=== PATIENT | male | born 1925 | race Caucasian/White ===

== ENCOUNTER 2017-07-11 23:30 | Inpatient (IN) ==
[2017-07-12] MEDS ORDERED: 0.9 % Sodium Chloride 1,000 ML IVC ONE ×2 (00:06→04:00)
[2017-07-12 00:37] LABS: Basophils % 0.3 %; Eosinophils # 0.1 K/mcL (0.0-0.6); Hematocrit 39.8 % (37.5-50.1); Hemoglobin 12.9 g/dL (12.9-16.9); Immature Granulocytes % 0.4 % (0-4); Lymphocytes # 0.9 K/mcL (0.6-4.6); Lymphocytes % 13.9 %; Mean Corpuscular HGB Conc 32.4 g/dL (31.6-35.5); Mean Corpuscular Volume 98.8 fL (83.0-100.0); Mean Platelet Volume 10.4 fL (9.4-12.4); Monocytes # 0.5 K/mcL (0.0-1.3); Monocytes % 7.6 %; Neutrophils # 5.1 K/mcL (1.6-8.9); Platelet Count 279 K/mcL (140-400); Red Blood Count 4.03 M/mcL (4.19-5.50); Red Cell Distribution Width 13.7 % (11.5-14.5); Segmented Neutrophils % 76.8 %
[2017-07-12 00:43] LABS: Bilirubin,Urine Negative (Negative); Blood,Urine Small (Negative); Clarity,Urine Clear (Clear); Color,Urine Yellow (Yellow); Glucose,Urine (UA) >=1000 mg/dL (Normal); Ketones,Urine Negative (Negative); Leukocyte Esterase,Urine Negative (Negative); Nitrite,Urine Negative (Negative); Protein,Urine 30 mg/dL (Neg-Trace); Specific Gravity,Urine 1.025 (1.010-1.025); Urobilinogen,Urine Normal (Normal)
[2017-07-12 00:46] LABS: Bacteria,Urine None Seen per hpf (None-Few); Hyaline Casts,Urine None Seen per lpf (None-Few); Squamous Epithelial Cell,Urine Many per lpf (None-Few); WBC,Urine 0-3 per hpf (0-3)
--- NOTE | 2017-07-12 01:29 | Emergency Department Note ---
Disposition Clinical Impression: Aspiration pneumonia Qualifiers: Aspiration pneumonia type: unspecified Laterality: bilateral Lung location: unspecified part of lung Qualified Code(s): J69.0 - Pneumonitis due to inhalation of food and vomit Disposition: Admitted As Inpatient Condition: Undetermined [facility]: [facility]Primary Care Provider[facility] - Forms: ED Satisfaction Letter Nausea/Vomiting/Diarrhea HPI - General Chief complaint: ED Nausea/Vomiting/Diarrhea Stated complaint: VOMITING Time Seen by Provider: 07/11/17 23:35 Source: EMS Mode of arrival: EMS Limitations: altered mental status Nursing Notes Reviewed: Yes Vital Signs Reviewed: Yes - History of Present Illness HPI Narrative: 89-year-old patient with a history of hypertension, diabetes, dementia, tachycardia, CVA, responsiveness, nonverbal noticed presents emergency department from the alf. 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 Number of episodes of emesis: 3 - Related Data Home Medications Medication Instructions Recorded Confirmed Aspirin 81 mg PO DAILY 10/30/14 01/05/17 Clopidogrel [Plavix] 75 mg PO DAILY 10/30/14 01/05/17 Cyanocobalamin (Vitamin B-12) 500 mcg PO BID 10/30/14 01/05/17 [Vitamin B-12] Docusate [Colace] 100 mg PO DAILY 10/30/14 01/05/17 Gabapentin [Neurontin] 200 mg PO TID 10/30/14 01/05/17 Insulin LISPRO [Humalog] 10 unit SQ TIDWM 10/30/14 01/05/17 Lisinopril [Zestril] 5 mg PO DAILY 10/30/14 01/05/17 Ranitidine HCl [Zantac] 150 mg PO BID 10/30/14 01/05/17 metFORMIN [Glucophage] 500 mg PO BID 10/30/14 01/05/17 Cholecalciferol (D-3) [Vitamin D] 1,000 unit PO DAILY 08/09/15 01/05/17 Insulin Glargine,Hum.rec.anlog 17 unit SQ HS 08/09/15 01/05/17 [Lantus Solostar] Metoprolol XL (24 HR) Succ [Toprol 50 mg PO DAILY 08/09/15 01/05/17 Xl] Acetaminophen [Pain Reliever] 500 mg PO Q8H PRN 03/17/16 01/05/17 Ipratropium/Albuterol Neb [Duoneb] 3 ml IH Q6HR 03/17/16 01/05/17 Multivit with Iron-Minerals 1 each PO DAILY 03/17/16 01/05/17 [[facility]] Previous Rx's Medication Instructions Recorded Erythromycin OPTH Oint 1 appl BOTH EYES QID 7 Days #1 tube 01/07/17 Allergies Allergy/AdvReac Type Severity Reaction Status Date / Time No Known Allergies Allergy Verified 10/16/14 09:48 Limitations: ROS unobtainable due to patients medical condition Past Medical History - Past Medical History Source: old records reviewed Medical history: Reports: CVA, dementia, diabetes, GERD, hyperlipidemia, hypertension, peripheral artery disease, TIA, other Surgical history: Reports: carotid endarterectomy, other Psychiatric history: Reports: no psych history - Social History Smoking Status: Never smoker Smokeless Tobacco Status: No Alcohol use: Reports: none Drug use: Reports: none Physical Exam - General Limitations: altered mental status General appearance: alert, in no apparent distress - Head Head exam: atraumatic, normocephalic, normal inspection - Eye Eye exam: Present: normal appearance, PERRL. Absent: conjunctival injection - ENT ENT exam: mucous membranes moist - Neck Neck exam: Present: normal inspection, full ROM, trachea midline - Chest Chest inspection: Present: normal inspection, symmetric chest wall rise - Respiratory Respiratory exam: Present: normal lung sounds bilaterally, other (Moist cough) - Cardiovascular Cardiovascular exam: Present: regular rate, normal rhythm, normal heart sounds - Abdominal Exam Abdominal exam: Present: soft, Non-Tender, normal bowel sounds. Absent: tenderness, distention, guarding, rebound, rigidity - Extremities Exam Extremities exam: Present: normal inspection, full ROM. Absent: tenderness, pedal edema - Neurological Exam Neurological exam: Present: other (Nonverbal, unresponsive) - Psychiatric Psychiatric exam: Present: normal affect - Skin Skin exam: Present: warm, dry, intact, normal color Course Course Narrative: 89-year-old nonverbal, unresponsive male to the emergency department for evaluation of vomiting 3 per EMS. Patient is from a local alf. Examination revealed a well-hydrated, [id number] male who is nonverbal, unresponsive; moist cough, respirations easy and even, lungs clear to auscultate, 96% on 2 L, heart rate tachycardia, regular rhythm; bowel sounds 4 , no organomegaly, tenderness, guarding with palpation. Skin with she will pressure ulcer to his coccyx, no other opening, right AKA. Vital signs have been stable, he has been tachycardic but does have a history of tachycardia. Due to cough we will obtain chest x-ray, give a liter fluid, check a urine and reevaluate. Concern for pneumonia - Reevaluation(s) Reevaluation #1: Labs all returned without signs of leukocytosis, systemic illness. UA without signs of infection. Patient has been resting comfortably without any episodes of emesis and she has been here. Skin check revealed no open ulcers. During recheck her vitals temperature noted to be 103 axillary. Patient running boluses, sepsis subset ordered. Patient noted with one episode of thin , brown colored emesis. At the same time patient was noted to have a BM. We have added flu swab and CT scan to help evaluate with fevers coming from. Patient meeting circulatory criteria at this time. Time: 02:55 Reevaluation #2: Patient returns to CT with SPO2 88%. Apparently while laying flat for CT scan patient vomited, since then has been coughing. Radiology suction patient in radiology, return patient to the ED quickly. Suction patient with younger revealing dark brown small amounts of fluid from back of throat. SPO2 noted 90% , increased O2 rate of 5 L, noted 92%. Patient continues to sound wet, moist as if he is aspirated called for respiratory therapy for deep suction. Patient is a full code at the alf. Patient most likely with aspiration pneumonia due to the fever, tachycardia, vomiting as patient is on a thick liquids, as well as some aspirate at this time. Chest x-ray earlier may have been before the 12-24 hour threshold to catch the aspiration pneumonia. We will go ahead and treat for presumed aspiration pneumonia as this is most likely at this time. We will continue to manage airway. Attending Dr. King's outpatient with one-on-one face time is agreeable plan of care. Time: 03:20 Reevaluation #3: Respiratory on unit deep suctioning with effective results. SPO2 now 9496% on O2. CT scan reveals atelectasis versus pneumonia. Due to witness aspiration, previous vomiting. We will admit to hospitalist services for aspiration pneumonia. Hospital speech at this time. Patient remains tachycardia with heart rate 125-135, respirations remain about 30. Lungs very moist, rhonchorous. Time: 03:29 Vital Signs Temperature 99.5 F 07/11/17 23:37 Pulse Rate 111 07/11/17 23:37 Respiratory Rate 18 07/11/17 23:37 Blood Pressure 127/73 07/11/17 23:37 O2 Sat by Pulse Oximetry 97 07/11/17 23:37 Temperature 102.7 F H 07/12/17 03:16 Pulse Rate 127 07/12/17 03:16 Respiratory Rate 22 07/12/17 03:16 Blood Pressure 116/62 07/12/17 03:16 O2 Sat by Pulse Oximetry 93 07/12/17 03:16 Oxygen Delivery Oxygen Delivery Nasal Cannula Nausea/Vomiting/Diarrhea - Differential Diagnosis Likely: food poisoning, gastroenteritis, drug-induced nausea and vomitting, dehydration. Unlikely: traveler's diarrhea, clostridium difficile infection, bowel obstruction, ischemic bowel - Medical Records Medical records reviewed: Yes I reviewed the patient's medical records. - Lab Data Lab results reviewed: Yes I reviewed the patient's lab results. Result diagrams: 07/12/17 00:27 07/12/17 01:16 Lab Results 07/12/17 07/12/17 07/12/17 Range/Units 00:27 00:27 00:35 WBC 6.7 (4.3-11.1) K/mcL RBC 4.03 L (4.19-5.50) M/mcL Hgb 12.9 (12.9-16.9) g/dL Hct 39.8 (37.5-50.1) % MCV 98.8 (83.0-100.0) fL MCH 32.0 (28.0-33.3) pg MCHC 32.4 (31.6-35.5) g/dL RDW 13.7 (11.5-14.5) % Plt Count 279 (140-400) K/mcL MPV 10.4 (9.4-12.4) fL Immature Gran % 0.4 (0-4) % Seg Neutrophils % 76.8 % Lymphocytes % 13.9 % Monocytes % 7.6 % Eosinophils % 1.0 % Basophils % 0.3 % Neutrophils # 5.1 (1.6-8.9) K/mcL Lymphocytes # 0.9 (0.6-4.6) K/mcL Monocytes # 0.5 (0.0-1.3) K/mcL Eosinophils # 0.1 (0.0-0.6) K/mcL Basophils # 0.0 (0.0-0.2) K/mcL Sodium (136-145) mEq/L Potassium (3.5-5.1) mEq/L Chloride (98-107) mEq/L Carbon Dioxide (23-29) mEq/L BUN (8-23) mg/dL Creatinine (0.70-1.30) mg/dL Est GFR ( Amer) (> 60) Est GFR (Non-Af Amer) (> 60) BUN/Creatinine Ratio (6-26) Glucose (70-105) mg/dL Calculated Osmolality (280-300) Calcium (8.6-10.3) mg/dL Total Bilirubin (0.3-1.0) mg/dL Direct Bilirubin (0.0-0.2) mg/dL Indirect Bilirubin (0.0-1.2) mg/dL AST (13-39) Units/L ALT (7-52) Units/L Alkaline Phosphatase (34-104) Units/L Serum Total Protein (6.4-8.9) g/dL Albumin (3.5-5.7) g/dL Globulin (2.4-3.5) g/dL Albumin/Globulin Ratio (1.1-2.2) Lipase (11-82) Units/L Urine Color Yellow (Yellow) Urine Clarity Clear (Clear) Urine pH 6.0 (5.0-8.0) pH Units Ur Specific [place] 1.025 (1.010-1.025) Urine Protein 30 H (Neg-Trace) mg/dL Urine Glucose (UA) >=1000 H (Normal) mg/dL Urine Ketones Negative (Negative) mg/dL Urine Blood Small H (Negative) Urine Nitrite Negative (Negative) Urine Bilirubin Negative (Negative) Urine Urobilinogen Normal (Normal) mg/dL Ur Leukocyte Esterase Negative (Negative) Urine Microscopic RBC 3-5 H (0-3) per hpf Urine Microscopic WBC 0-3 (0-3) per hpf Ur Squamous Epith Cells Many H (None-Few) per lpf Urine Bacteria None Seen (None-Few) per hpf Hyaline Casts None Seen (None-Few) per lpf Ur Culture Indicated? NO (NO) Specimen Rejected Hemolyzed 07/12/17 Range/Units 01:16 WBC (4.3-11.1) K/mcL RBC (4.19-5.50) M/mcL Hgb (12.9-16.9) g/dL Hct (37.5-50.1) % MCV (83.0-100.0) fL MCH (28.0-33.3) pg MCHC (31.6-35.5) g/dL RDW (11.5-14.5) % Plt Count (140-400) K/mcL MPV (9.4-12.4) fL Immature Gran % (0-4) % Seg Neutrophils % % Lymphocytes % % Monocytes % % Eosinophils % % Basophils % % Neutrophils # (1.6-8.9) K/mcL Lymphocytes # (0.6-4.6) K/mcL Monocytes # (0.0-1.3) K/mcL Eosinophils # (0.0-0.6) K/mcL Basophils # (0.0-0.2) K/mcL Sodium 136 (136-145) mEq/L Potassium 4.5 (3.5-5.1) mEq/L Chloride 105 (98-107) mEq/L Carbon Dioxide 23 (23-29) mEq/L BUN 24 H (8-23) mg/dL Creatinine 1.04 (0.70-1.30) mg/dL Est GFR ( Amer) > 60 (> 60) Est GFR (Non-Af Amer) > 60 (> 60) BUN/Creatinine Ratio 23 (6-26) Glucose 289 H (70-105) mg/dL Calculated Osmolality 297 (280-300) Calcium 8.2 L (8.6-10.3) mg/dL Total Bilirubin 0.2 L (0.3-1.0) mg/dL Direct Bilirubin 0.1 (0.0-0.2) mg/dL Indirect Bilirubin 0.1 (0.0-1.2) mg/dL AST 14 (13-39) Units/L ALT 11 (7-52) Units/L Alkaline Phosphatase 57 (34-104) Units/L Serum Total Protein 6.6 (6.4-8.9) g/dL Albumin 3.6 (3.5-5.7) g/dL Globulin 3.0 (2.4-3.5) g/dL Albumin/Globulin Ratio 1.2 (1.1-2.2) Lipase 44 (11-82) Units/L Urine Color (Yellow) Urine Clarity (Clear) Urine pH (5.0-8.0) pH Units Ur Specific [place] (1.010-1.025) Urine Protein (Neg-Trace) mg/dL Urine Glucose (UA) (Normal) mg/dL Urine Ketones (Negative) mg/dL Urine Blood (Negative) Urine Nitrite (Negative) Urine Bilirubin (Negative) Urine Urobilinogen (Normal) mg/dL Ur Leukocyte Esterase (Negative) Urine Microscopic RBC (0-3) per hpf Urine Microscopic WBC (0-3) per hpf Ur Squamous Epith Cells (None-Few) per lpf Urine Bacteria (None-Few) per hpf Hyaline Casts (None-Few) per lpf Ur Culture Indicated? (NO) Specimen Rejected - Radiology Data Radiology results reviewed: Yes I reviewed the patient's radiology results. - EKG Data EKG attestation: Yes I reviewed and interpreted this EKG.
[2017-07-12] MEDS ORDERED: Acetaminophen 650 MG RECTAL SUPP RC ONE (01:43)
[2017-07-12 01:45] LABS: Alanine Aminotransferase 11 Units/L (7-52); Albumin 3.6 g/dL (3.5-5.7); Albumin/Globulin Ratio 1.2 (1.1-2.2); Alkaline Phosphatase 57 Units/L (34-104); Aspartate Amino Transferase 14 Units/L (13-39); BUN/Creatinine Ratio 23 (6-26); Bilirubin,Direct 0.1 mg/dL (0.0-0.2); Bilirubin,Indirect 0.1 mg/dL (0.0-1.2); Bilirubin,Total 0.2 mg/dL (0.3-1.0); Blood Urea Nitrogen 24 mg/dL (8-23); Calcium 8.2 mg/dL (8.6-10.3); Carbon Dioxide 23 mEq/L (23-29); Chloride 105 mEq/L (98-107); Glucose 289 mg/dL (70-105); Lipase 44 Units/L (11-82); Osmolality,Calculated 297 (280-300); Potassium 4.5 mEq/L (3.5-5.1); Sodium 136 mEq/L (136-145); Total Protein 6.6 g/dL (6.4-8.9); eGFR For African Americans > 60 (> 60); eGFR For Non-African Americans > 60 (> 60)
[2017-07-12] MEDS ORDERED: Ampicillin/Sulbactam 3,000 MG in 0.9 % Sodium Chloride Mini Bag 100 ML IVPB ONE (03:15)
[2017-07-12] MEDS ORDERED: *HR* Metoprolol 5 MG/5 ML VIAL IVP ONE (03:33)
--- NOTE | 2017-07-12 03:44 | Emergency Department Note ---
Disposition Clinical Impression: Aspiration pneumonia Qualifiers: Aspiration pneumonia type: unspecified Laterality: bilateral Lung location: unspecified part of lung Qualified Code(s): J69.0 - Pneumonitis due to inhalation of food and vomit Disposition: Admitted As Inpatient Condition: Fair General Adult HPI - General Chief complaint: ED Nausea/Vomiting/Diarrhea Stated complaint: VOMITING Time Seen by Provider: 07/11/17 23:35 Source: EMS Mode of arrival: EMS Limitations: altered mental status Nursing Notes Reviewed: Yes Vital Signs Reviewed: Yes - History of Present Illness Pain Scale: 0 - Related Data Home Medications Medication Instructions Recorded Confirmed Aspirin 81 mg PO DAILY 10/30/14 07/12/17 Clopidogrel [Plavix] 75 mg PO DAILY 10/30/14 07/12/17 Cyanocobalamin (Vitamin B-12) 500 mcg PO BID 10/30/14 07/12/17 [Vitamin B-12] Docusate [Colace] 100 mg PO DAILY 10/30/14 07/12/17 Gabapentin [Neurontin] 200 mg PO TID 10/30/14 07/12/17 Insulin LISPRO [Humalog] 10 unit SQ TIDWM 10/30/14 07/12/17 Lisinopril [Zestril] 5 mg PO DAILY 10/30/14 07/12/17 Ranitidine HCl [Zantac] 150 mg PO BID 10/30/14 07/12/17 metFORMIN [Glucophage] 500 mg PO BID 10/30/14 07/12/17 Cholecalciferol (D-3) [Vitamin D] 1,000 unit PO DAILY 08/09/15 07/12/17 Insulin Glargine,Hum.rec.anlog 17 unit SQ HS 08/09/15 07/12/17 [Lantus Solostar] Metoprolol XL (24 HR) Succ [Toprol 50 mg PO DAILY 08/09/15 07/12/17 Xl] Acetaminophen [Pain Reliever] 500 mg PO Q8H PRN 03/17/16 07/12/17 Ipratropium/Albuterol Neb [Duoneb] 3 ml IH Q6HR 03/17/16 07/12/17 Multivit with Iron-Minerals 1 each PO DAILY 03/17/16 07/12/17 [[facility]] Previous Rx's Medication Instructions Recorded Erythromycin OPTH Oint 1 appl BOTH EYES QID 7 Days #1 tube 01/07/17 Allergies Allergy/AdvReac Type Severity Reaction Status Date / Time No Known Allergies Allergy Verified 10/16/14 09:48 Past Medical History - Past Medical History Medical history: Reports: CVA, dementia, diabetes, GERD, hyperlipidemia, hypertension, peripheral artery disease, TIA, other Surgical history: Reports: carotid endarterectomy, other Psychiatric history: Reports: no psych history - Social History Smoking Status: Never smoker Smokeless Tobacco Status: No Alcohol use: Reports: none Drug use: Reports: none Physical Exam - General Limitations: altered mental status General appearance: alert, in no apparent distress Course Vital Signs Temperature 99.5 F 07/11/17 23:37 Pulse Rate 111 07/11/17 23:37 Respiratory Rate 18 07/11/17 23:37 Blood Pressure 127/73 07/11/17 23:37 O2 Sat by Pulse Oximetry 97 07/11/17 23:37 Temperature 102.7 F H 07/12/17 03:16 Pulse Rate 127 07/12/17 03:16 Respiratory Rate 22 07/12/17 03:16 Blood Pressure 116/62 07/12/17 03:16 O2 Sat by Pulse Oximetry 93 07/12/17 03:16 Oxygen Delivery Oxygen Delivery Nasal Cannula Medical Decision Making - Lab Data Result diagrams: 07/12/17 00:27 07/12/17 01:16 Lab Results 07/12/17 07/12/17 07/12/17 Range/Units 00:27 00:27 00:35 WBC 6.7 (4.3-11.1) K/mcL RBC 4.03 L (4.19-5.50) M/mcL Hgb 12.9 (12.9-16.9) g/dL Hct 39.8 (37.5-50.1) % MCV 98.8 (83.0-100.0) fL MCH 32.0 (28.0-33.3) pg MCHC 32.4 (31.6-35.5) g/dL RDW 13.7 (11.5-14.5) % Plt Count 279 (140-400) K/mcL MPV 10.4 (9.4-12.4) fL Immature Gran % 0.4 (0-4) % Seg Neutrophils % 76.8 % Lymphocytes % 13.9 % Monocytes % 7.6 % Eosinophils % 1.0 % Basophils % 0.3 % Neutrophils # 5.1 (1.6-8.9) K/mcL Lymphocytes # 0.9 (0.6-4.6) K/mcL Monocytes # 0.5 (0.0-1.3) K/mcL Eosinophils # 0.1 (0.0-0.6) K/mcL Basophils # 0.0 (0.0-0.2) K/mcL Sodium (136-145) mEq/L Potassium (3.5-5.1) mEq/L Chloride (98-107) mEq/L Carbon Dioxide (23-29) mEq/L BUN (8-23) mg/dL Creatinine (0.70-1.30) mg/dL Est GFR ( Amer) (> 60) Est GFR (Non-Af Amer) (> 60) BUN/Creatinine Ratio (6-26) Glucose (70-105) mg/dL Calculated Osmolality (280-300) Calcium (8.6-10.3) mg/dL Total Bilirubin (0.3-1.0) mg/dL Direct Bilirubin (0.0-0.2) mg/dL Indirect Bilirubin (0.0-1.2) mg/dL AST (13-39) Units/L ALT (7-52) Units/L Alkaline Phosphatase (34-104) Units/L Serum Total Protein (6.4-8.9) g/dL Albumin (3.5-5.7) g/dL Globulin (2.4-3.5) g/dL Albumin/Globulin Ratio (1.1-2.2) Lipase (11-82) Units/L Urine Color Yellow (Yellow) Urine Clarity Clear (Clear) Urine pH 6.0 (5.0-8.0) pH Units Ur Specific [place] 1.025 (1.010-1.025) Urine Protein 30 H (Neg-Trace) mg/dL Urine Glucose (UA) >=1000 H (Normal) mg/dL Urine Ketones Negative (Negative) mg/dL Urine Blood Small H (Negative) Urine Nitrite Negative (Negative) Urine Bilirubin Negative (Negative) Urine Urobilinogen Normal (Normal) mg/dL Ur Leukocyte Esterase Negative (Negative) Urine Microscopic RBC 3-5 H (0-3) per hpf Urine Microscopic WBC 0-3 (0-3) per hpf Ur Squamous Epith Cells Many H (None-Few) per lpf Urine Bacteria None Seen (None-Few) per hpf Hyaline Casts None Seen (None-Few) per lpf Ur Culture Indicated? NO (NO) Specimen Rejected Hemolyzed 07/12/17 Range/Units 01:16 WBC (4.3-11.1) K/mcL RBC (4.19-5.50) M/mcL Hgb (12.9-16.9) g/dL Hct (37.5-50.1) % MCV (83.0-100.0) fL MCH (28.0-33.3) pg MCHC (31.6-35.5) g/dL RDW (11.5-14.5) % Plt Count (140-400) K/mcL MPV (9.4-12.4) fL Immature Gran % (0-4) % Seg Neutrophils % % Lymphocytes % % Monocytes % % Eosinophils % % Basophils % % Neutrophils # (1.6-8.9) K/mcL Lymphocytes # (0.6-4.6) K/mcL Monocytes # (0.0-1.3) K/mcL Eosinophils # (0.0-0.6) K/mcL Basophils # (0.0-0.2) K/mcL Sodium 136 (136-145) mEq/L Potassium 4.5 (3.5-5.1) mEq/L Chloride 105 (98-107) mEq/L Carbon Dioxide 23 (23-29) mEq/L BUN 24 H (8-23) mg/dL Creatinine 1.04 (0.70-1.30) mg/dL Est GFR ( Amer) > 60 (> 60) Est GFR (Non-Af Amer) > 60 (> 60) BUN/Creatinine Ratio 23 (6-26) Glucose 289 H (70-105) mg/dL Calculated Osmolality 297 (280-300) Calcium 8.2 L (8.6-10.3) mg/dL Total Bilirubin 0.2 L (0.3-1.0) mg/dL Direct Bilirubin 0.1 (0.0-0.2) mg/dL Indirect Bilirubin 0.1 (0.0-1.2) mg/dL AST 14 (13-39) Units/L ALT 11 (7-52) Units/L Alkaline Phosphatase 57 (34-104) Units/L Serum Total Protein 6.6 (6.4-8.9) g/dL Albumin 3.6 (3.5-5.7) g/dL Globulin 3.0 (2.4-3.5) g/dL Albumin/Globulin Ratio 1.2 (1.1-2.2) Lipase 44 (11-82) Units/L Urine Color (Yellow) Urine Clarity (Clear) Urine pH (5.0-8.0) pH Units Ur Specific [place] (1.010-1.025) Urine Protein (Neg-Trace) mg/dL Urine Glucose (UA) (Normal) mg/dL Urine Ketones (Negative) mg/dL Urine Blood (Negative) Urine Nitrite (Negative) Urine Bilirubin (Negative) Urine Urobilinogen (Normal) mg/dL Ur Leukocyte Esterase (Negative) Urine Microscopic RBC (0-3) per hpf Urine Microscopic WBC (0-3) per hpf Ur Squamous Epith Cells (None-Few) per lpf Urine Bacteria (None-Few) per hpf Hyaline Casts (None-Few) per lpf Ur Culture Indicated? (NO) Specimen Rejected Critical Care Time Critical Care Time: No Attestation Statement - Attestation Attestation: I, Iván King MD, personally evaluated this patient and discussed their management with the midlevel provicer, PAC/DARK ROOM ATTENDANT. I reviewed the midlevel provider 's note and agree with the documented findings, medical decision making, and plan of care. 89-year-old male sent from a local skilled nursing for evaluation after 3 episodes of vomiting this evening. They were concerned that he may of aspirated. Patient has dementia and is nonverbal and unable to provide any history. Here in the emergency department the patient developed a fever up to 103.6. On examination patient is a well-developed well-nourished elderly male. He is alert. There is no diaphoresis. Breath sounds are equal bilaterally with coarse expiratory rhonchi bilaterally. Heart tachycardic and regular. Abdomen is soft with increased bowel sounds. Labs reviewed. CT the abdomen and pelvis shows no acute abnormality in the abdomen but did show bibasilar atelectasis versus pneumonia. The hospitalist, Dr. Abdul, was consulted and accepted admission of the patient.
[2017-07-12] MEDS ORDERED: Naloxone 0.4 MG/ML INJ IVP PRN (04:00)
[2017-07-12] MEDS ORDERED: Ondansetron ODT 4 MG TAB.RAPDIS SL PRN (04:00)
[2017-07-12] MEDS ORDERED: Acetaminophen 325 MG TABLET PO PRN (04:00)
[2017-07-12] MEDS ORDERED: *HR* Metoprolol 5 MG/5 ML VIAL IVP PRN (04:13)
[2017-07-12] MEDS ORDERED: Dextrose Gel 15 GM/37.5 ML TUBE PO PRN ×2 (04:13)
[2017-07-12] MEDS ORDERED: D5% in Water 1,000 ML IVC PRN (04:13)
[2017-07-12] MEDS ORDERED: *HR* Dextrose 50 % in Water (Syg) 50 ML SYRINGE IVP PRN (04:13)
--- NOTE | 2017-07-12 04:19 | Internal Med History&Physical ---
Date of Encounter: 07/12/17 Time of Encounter: 03:30 Internal Medicine - H&P: HPI Chief complaint: Vomiting Admitted From: Long-term Nursing Facility Plans for Post Hospital Care: Transfer [facility] History of present illness: Mr. Hartman is a 89 year old male sent from [facility] to emergency room for vomiting. Past medical history is significant for diabetes, dementia, hypertension, history of CVA, S/P right side AKA. Patient is nonverbal probably due to previous CVA and dementia. History is obtained from [facility] transfer documentation and ER documentation. Patient has vomiting 3 in the [facility] today, seems clear liquid, however, patient was suspect aspiration because of choking during vomiting. In the emergency room, CT abdominal has been done, result is unremarkable. However, patient developed fever and increased oxygen demand. Patient was admitted for vomiting and highly suspect aspiration pneumonia. Patient was started IV fluid and Unasyn in the emergency room. Per [facility] documentation, patient's CODE STATUS is full code. Past Med Surg Social Fam HX - Past Medical History Medical history: CVA, dementia, diabetes, GERD, hyperlipidemia, hypertension, peripheral artery disease, TIA, other Psychiatric history: no psych history - Past Surgical History Surgical History: carotid endarterectomy, other - Social History Smoking Status: Never smoker Smokeless Tobacco Status: No Alcohol use: none Drug use: none - Family History Father Living Status: Hx Family Cardiac Disorders: Yes (CAD) Internal Medicine - H&P: Meds Aspirin 81 mg PO DAILY 10/30/14 [History] Clopidogrel [Plavix] 75 mg PO DAILY 10/30/14 [History] Cyanocobalamin (Vitamin B-12) [Vitamin B-12] 500 mcg PO BID 10/30/14 [History] Docusate [Colace] 100 mg PO DAILY 10/30/14 [History] Gabapentin [Neurontin] 200 mg PO TID 10/30/14 [History] Insulin LISPRO [Humalog] 10 unit SQ TIDWM 10/30/14 [History] Lisinopril [Zestril] 5 mg PO DAILY 10/30/14 [History] Ranitidine HCl [Zantac] 150 mg PO BID 10/30/14 [History] metFORMIN [Glucophage] 500 mg PO BID 10/30/14 [History] Cholecalciferol (D-3) [Vitamin D] 1,000 unit PO DAILY 05/26/16 [History] Insulin Glargine,Hum.rec.anlog [Lantus Solostar] 17 unit SQ HS 08/09/15 [History ] Metoprolol XL (24 HR) Succ [Toprol Xl] 50 mg PO DAILY 08/09/15 [History] Acetaminophen [Pain Reliever] 500 mg PO Q8H PRN 03/17/16 [History] Ipratropium/Albuterol Neb [Duoneb] 3 ml IH Q6HR 03/17/16 [History] Multivit with Iron-Minerals [[facility] [place] [facility]] 1 each PO DAILY 03/17/16 [History] Erythromycin OPTH Oint 1 appl BOTH EYES QID 7 Days #1 tube 01/07/17 [Rx] 3 Allergy/AdvReac Type Severity Reaction Status Date / Time No Known Allergies Allergy Verified 10/16/14 09:48 All Systems PM: A 10-system review of systems was performed and is negative for pertinent findings except as documented above in the HPI. - Constitutional Vitals: Temp Pulse Resp BP Pulse Ox 102.7 F H 127 22 116/62 93 07/12/17 03:16 07/12/17 03:16 07/12/17 03:16 07/12/17 03:16 07/12/17 03:16 General appearance: Present: A&O X 0, no acute distress - Head Head exam: Present: atraumatic, normocephalic - Eye Eye exam: Present: PERRL, conjuntiva pink, sclera anicteric Pupils: Present: PERRL - Neck Neck exam general surgery: Present: supple, trachea midline. Absent: lymphadenopathy - Respiratory Respiratory exam: Present: CTAB, rhonchi (Bilateral diffuse rhonchi). Absent: accessory muscle use, rales, wheezes - Cardiovascular Cardiovascular exam: Present: RRR, +S1, +S2, tachycardia. Absent: diastolic murmur, gallop, rubs, systolic murmur - GI/Abdominal GI/Abdominal exam: Present: normal bowel sounds, soft, no peritoneal signs. Absent: distended, tenderness - Extremities Exam Extremities exam: Present: warm, radial pulses palpable and symmetrical. Absent : calf tenderness, cyanotic, pedal edema - Neurological Exam Neurological exam: Present: CN II-XII intact, no focal deficits. Absent: facial droop - Skin Skin exam: Present: dry, intact Internal Med - H&P Results - Labs CBC & Chem 7: 07/12/17 00:27 07/12/17 01:16 - Assessment and plan (1) Sepsis Current Visit: Yes Status: Acute Assessment and plan: Patient to meet sepsis criteria with fever and tachycardia. Infectious source is highly suspected as aspiration pneumonia. - Early goal directed fluid resuscitation started the from ER. - Blood culture and lactate acid level is pending - Place patient on Unasyn for aspiration pneumonia - Continue closely monitor patient Qualifiers: Sepsis type: sepsis due to unspecified organism Qualified Code(s): A41.9 - Sepsis, unspecified organism (2) Vomiting Current Visit: Yes Status: Acute Assessment and plan: Etiology is undetermined. CT abdominal has been done, no acute infection, no obstruction identified. - Most likely viral gastritis. - Place patient on nothing by mouth, IV fluid - Follow up electrolytes level and correct abnormalities Qualifiers: Vomiting type: projectile vomiting Nausea presence: unspecified Qualified Code(s): R11.12 - Projectile vomiting (3) Aspiration pneumonia Current Visit: Yes Status: Acute Assessment and plan: CT abdomen shows bilateral lung base atelectasis or pneumonia. Patient has vomiting. Has history of CVA. High risk for aspiration pneumonia. Patient has fever and diffuse rhonchi bilaterally in lung. Consider patient has aspiration pneumonia. - Place patient on Unasyn IV - Oxygen supportive treatment and symptomatic treatment - Closely monitor patient - Nothing by mouth at this point, speech consult for swallow evaluation Qualifiers: Aspiration pneumonia type: unspecified Laterality: bilateral Lung location: lower lobe of lung Qualified Code(s): J69.0 - Pneumonitis due to inhalation of food and vomit (4) CVA (cerebral vascular accident) Current Visit: No Status: Acute Assessment and plan: History of CVA. Patient is on nothing by mouth now because of aspiration. We will resume home medication after restarting diet. Qualifiers: CVA mechanism: embolism Precerebral and cerebral artery: middle cerebral artery Laterality of affected vessel: right Qualified Code(s): I63.411 - Cerebral infarction due to embolism of right middle cerebral artery (5) DVT prophylaxis Current Visit: No Status: Acute Assessment and plan: Heparin Subcutaneously (6) Dementia Current Visit: No Status: Chronic Assessment and plan: Continue closely monitor patient Qualifiers: Dementia type: unspecified type Dementia behavioral disturbance: without behavioral disturbance Qualified Code(s): F03.90 - Unspecified dementia without behavioral disturbance (7) Diabetes Current Visit: No Status: Chronic Assessment and plan: Place patient on sliding scale insulin coverage Qualifiers: Diabetes mellitus type: type 2 Diabetes mellitus parts counterman insulin use: with parts counterman use Diabetes mellitus complication status: with skin complications Diabetes mellitus complication detail: with foot ulcer Qualified Code(s): E11.621 - Type 2 diabetes mellitus with foot ulcer - Time Spent With Patient Total time spent is greater than 50% in coordination of care (as documented) at patient's floor/unit and/or counseling patient:
[2017-07-12 04:39] LABS: Basophils % 0.2 %; Hematocrit 35.9 % (37.5-50.1); Hemoglobin 11.6 g/dL (12.9-16.9); Immature Granulocytes % 0.2 % (0-4); Lymphocytes # 0.3 K/mcL (0.6-4.6); Lymphocytes % 6.2 %; Mean Corpuscular HGB Conc 32.3 g/dL (31.6-35.5); Mean Corpuscular Hemoglobin 31.4 pg (28.0-33.3); Mean Platelet Volume 10.2 fL (9.4-12.4); Monocytes # 0.3 K/mcL (0.0-1.3); Monocytes % 5.9 %; Platelet Count 259 K/mcL (140-400); Red Cell Distribution Width 13.7 % (11.5-14.5); Segmented Neutrophils % 87.5 %
[2017-07-12 04:41] LABS: Neutrophils # 3.9 K/mcL (1.6-8.9)
[2017-07-12 04:58] LABS: BUN/Creatinine Ratio 22 (6-26); Blood Urea Nitrogen 25 mg/dL (8-23); Calcium 8.6 mg/dL (8.6-10.3); Carbon Dioxide 22 mEq/L (23-29); Chloride 103 mEq/L (98-107); Glucose 344 mg/dL (70-105); Magnesium 1.6 mg/dL (1.6-2.6); Osmolality,Calculated 302 (280-300); Potassium 4.6 mEq/L (3.5-5.1); Sodium 137 mEq/L (136-145); eGFR For African Americans > 60 (> 60); eGFR For Non-African Americans 59 (> 60)
[2017-07-12 04:59] LABS: Platelet Estimate Normal (Normal)
[2017-07-12] MEDS: Insulin LISPRO 300 UNITS/3 ML VIAL SQ SCH ×3 (05:31→17:23)
[2017-07-12] MEDS: *HR* Heparin 5,000 UNIT/ML VIAL SQ SCH ×2 (05:33→17:02)
[2017-07-12] MEDS ORDERED: Acetaminophen 650 MG RECTAL SUPP RC PRN (05:48)
[2017-07-12] MEDS: 0.9 % Sodium Chloride 1,000 ML IVC SCH ×2 (06:48→17:03)
[2017-07-12] MEDS: Ampicillin/Sulbactam 3,000 MG in 0.9 % Sodium Chloride Mini Bag 100 ML IVPB SCH ×3 (09:45→22:40)
--- NOTE | 2017-07-12 17:40 | Event Note ---
Date of Encounter: 07/12/17 Time of Encounter: 11:00 Patient evaluated by nocturnalist earlier this morning and also by myself Patient is an 89-year-old male from [facility] found to have sepsis secondary to aspiration pneumonia on IV Unasyn and IV fluids Speech therapy consulted for swallow eval
[2017-07-12 17:57] LABS: Hematocrit 33.1 % (37.5-50.1); Hemoglobin 10.8 g/dL (12.9-16.9); Mean Corpuscular HGB Conc 32.6 g/dL (31.6-35.5); Mean Corpuscular Hemoglobin 31.9 pg (28.0-33.3); Mean Corpuscular Volume 97.6 fL (83.0-100.0); Mean Platelet Volume 10.1 fL (9.4-12.4); Platelet Count 232 K/mcL (140-400); Red Blood Count 3.39 M/mcL (4.19-5.50)
[2017-07-12 18:15] LABS: BUN/Creatinine Ratio 21 (6-26); Blood Urea Nitrogen 20 mg/dL (8-23); Calcium 8.2 mg/dL (8.6-10.3); Carbon Dioxide 24 mEq/L (23-29); Chloride 109 mEq/L (98-107); Glucose 150 mg/dL (70-105); Osmolality,Calculated 295 (280-300); Potassium 4.3 mEq/L (3.5-5.1); Sodium 140 mEq/L (136-145); eGFR For African Americans > 60 (> 60); eGFR For Non-African Americans > 60 (> 60)
[2017-07-12 18:19] LABS: Lymphocytes # 1.3 K/mcL (0.6-4.6); Monocytes # 0.9 K/mcL (0.0-1.3); Neutrophils # 2.5 K/mcL (1.6-8.9)
[2017-07-12 18:20] LABS: Platelet Estimate Normal (Normal); Toxic Granulation Present (Not Present)
[2017-07-13] MEDS: Insulin LISPRO 300 UNITS/3 ML VIAL SQ SCH ×4 (00:51→17:29)
[2017-07-13] MEDS: 0.9 % Sodium Chloride 1,000 ML IVC SCH (02:34)
[2017-07-13 03:31] LABS: Hematocrit 29.8 % (37.5-50.1); Hemoglobin 9.4 g/dL (12.9-16.9); Mean Corpuscular HGB Conc 31.5 g/dL (31.6-35.5); Mean Corpuscular Hemoglobin 31.3 pg (28.0-33.3); Mean Corpuscular Volume 99.3 fL (83.0-100.0); Mean Platelet Volume 10.5 fL (9.4-12.4); Monocytes # 0.3 K/mcL (0.0-1.3); Platelet Count 208 K/mcL (140-400); Red Cell Distribution Width 14.1 % (11.5-14.5)
[2017-07-13 04:01] LABS: BUN/Creatinine Ratio 23 (6-26); Blood Urea Nitrogen 20 mg/dL (8-23); Calcium 7.7 mg/dL (8.6-10.3); Carbon Dioxide 25 mEq/L (23-29); Chloride 113 mEq/L (98-107); Glucose 122 mg/dL (70-105); Osmolality,Calculated 298 (280-300); Potassium 4.2 mEq/L (3.5-5.1); Sodium 142 mEq/L (136-145); eGFR For African Americans > 60 (> 60); eGFR For Non-African Americans > 60 (> 60)
[2017-07-13 04:08] LABS: Eosinophils # 0.2 K/mcL (0.0-0.6); Lymphocytes # 1.7 K/mcL (0.6-4.6); Neutrophils # 2.9 K/mcL (1.6-8.9)
[2017-07-13 04:09] LABS: Platelet Estimate Normal (Normal); Reactive Lymphocytes Present (Not Present); Toxic Vacuolation Present (Not Present)
[2017-07-13] MEDS: Ampicillin/Sulbactam 3,000 MG in 0.9 % Sodium Chloride Mini Bag 100 ML IVPB SCH ×4 (04:17→21:40)
[2017-07-13] MEDS: *HR* Heparin 5,000 UNIT/ML VIAL SQ SCH ×2 (05:48→16:51)
[2017-07-13] MEDS: Gabapentin 100 MG CAPSULE PO SCH ×4 (09:16→20:00)
[2017-07-13] MEDS: Metoprolol XL (24 HR) Succ 50 MG TAB.ER.24H PO SCH ×2 (09:16→09:44)
[2017-07-13] MEDS: Loratadine 10 MG TABLET PO SCH ×2 (09:16→09:44)
[2017-07-13] MEDS: Famotidine 20 MG TABLET PO SCH ×2 (09:16→09:44)
[2017-07-13] MEDS: Cholecalciferol (D-3) 1,000 UNIT TABLET PO SCH ×2 (09:16→09:44)
[2017-07-13] MEDS: Aspirin 81 MG TAB.CHEW PO SCH ×2 (09:16→09:43)
[2017-07-13] MEDS: Cyanocobalamin (B-12) 1,000 MCG TABLET PO SCH ×2 (09:16→09:44)
[2017-07-13] MEDS: Multivit/Ca/Min/Fe/FA 1 TAB TABLET PO SCH ×2 (09:16→09:44)
[2017-07-13] MEDS: Ipratropium/Albuterol Neb 3 ML IH SCH ×3 (10:39→21:00)
--- NOTE | 2017-07-13 15:58 | Internal Med Progress Note ---
Date of Encounter: 07/13/17 Time of Encounter: 11:27 - Assessment and plan (1) Sepsis Current Visit: Yes Status: Acute Assessment and plan: Improving. Continue IVF and IV unasyn. Follow up on blood cultures. Monitor closely. Recheck labwork in AM. Qualifiers: Sepsis type: sepsis due to unspecified organism Qualified Code(s): A41.9 - Sepsis, unspecified organism (2) Aspiration pneumonia Current Visit: Yes Status: Acute Assessment and plan: CT abdomen shows bilateral lung base atelectasis or pneumonia. High risk for aspiration pneumonia. Continue IVF and IV unasyn. Continue supplemental O2 PRN ; wean as tolerated. NPO until speech evaluation. Continue to monitor closely. Consider pulmonology consult for possible bronchoscopy if no improvement. Recheck labwork in AM. Qualifiers: Aspiration pneumonia type: unspecified Laterality: bilateral Lung location: lower lobe of lung Qualified Code(s): J69.0 - Pneumonitis due to inhalation of food and vomit (3) Vomiting Current Visit: Yes Status: Resolved Assessment and plan: No further episodes. Continue NPO until evaluated by ST. Continue IVF. Recheck labwork in AM. Qualifiers: Vomiting type: projectile vomiting Nausea presence: unspecified Qualified Code(s): R11.12 - Projectile vomiting (4) Dementia Current Visit: Yes Status: Chronic Assessment and plan: Monitor closely. Qualifiers: Dementia type: unspecified type Dementia behavioral disturbance: without behavioral disturbance Qualified Code(s): F03.90 - Unspecified dementia without behavioral disturbance (5) Diabetes Current Visit: Yes Status: Chronic Assessment and plan: Continue accuchecks and low dose SSI QID AC/HS. Qualifiers: Diabetes mellitus type: type 2 Diabetes mellitus roasterman insulin use: with snf use Diabetes mellitus complication status: with skin complications Diabetes mellitus complication detail: with foot ulcer Qualified Code(s): E11.621 - Type 2 diabetes mellitus with foot ulcer (6) CVA (cerebral vascular accident) Current Visit: Yes Status: Chronic Assessment and plan: History of CVA. Patient is on nothing by mouth until ST evaluation because of aspiration. We will resume home medication after restarting diet. Qualifiers: CVA mechanism: embolism Precerebral and cerebral artery: middle cerebral artery Laterality of affected vessel: right Qualified Code(s): I63.411 - Cerebral infarction due to embolism of right middle cerebral artery (7) DVT prophylaxis Current Visit: Yes Status: Acute Assessment and plan: Continue SQ heparin. - Time Spent With Patient Total time spent is greater than 50% in coordination of care (as documented) at patient's floor/unit and/or counseling patient: less than 15 minutes - Subjective Interval history: Patient had no acute events overnight. He is somnolent this AM. He cannot verbalize any concerns. Discussed plan of care with son today. - Constitutional Vitals: Temp Pulse Resp BP Pulse Ox 100.0 F H 86 17 102/64 97 07/13/17 14:58 07/13/17 14:58 07/13/17 15:31 07/13/17 14:58 07/13/17 15:31 General appearance: Present: A&O X 0, no acute distress. Absent: answers questions appropriately Exam: Non-verbal, somnolent - Eye Eye exam: Present: PERRL. Absent: conjunctival injection, scleral icterus - Respiratory Respiratory exam: Absent: accessory muscle use, rales, wheezes Additional comments: Moderately labored WOB, rhonchorous breath sounds bilaterally - Cardiovascular Cardiovascular exam: Present: RRR, +S1, +S2. Absent: diastolic murmur, gallop, rubs, systolic murmur Additional comments: No BLE edema - GI/Abdominal GI/Abdominal exam: Present: normal bowel sounds, soft. Absent: distended, hepatomegaly, mass, splenomegaly, tenderness - Psychiatric Psychiatric exam: Absent: agitated Additional comments: Unable to fully evaluate due to patient condition - Skin Skin exam: Present: dry, intact, warm. Absent: cyanosis, rash Internal Medicine: Result - Labs CBC & Chem 7: 07/13/17 02:33 07/13/17 02:33 Labs: Short CBC 07/12/17 07/13/17 Range/Units 17:46 02:33 WBC 4.7 5.1 (4.3-11.1) K/mcL Hgb 10.8 L 9.4 L (12.9-16.9) g/dL Hct 33.1 L 29.8 L (37.5-50.1) % Plt Count 232 208 (140-400) K/mcL Neutrophils # 2.5 2.9 (1.6-8.9) K/mcL BMP 07/12/17 07/13/17 17:46 02:33 Sodium 140 142 Potassium 4.3 4.2 Chloride 109 H 113 H Carbon Dioxide 24 25 BUN 20 20 Creatinine 0.94 0.86 Glucose 150 H 122 H Calcium 8.2 L 7.7 L Consult Discharge Plan - Plan [facility]errals: [facility] [Primary Care Provider] -
[2017-07-14] MEDS: Insulin LISPRO 300 UNITS/3 ML VIAL SQ SCH ×5 (00:06→23:53)
[2017-07-14] MEDS: Ampicillin/Sulbactam 3,000 MG in 0.9 % Sodium Chloride Mini Bag 100 ML IVPB SCH ×4 (03:22→22:32)
[2017-07-14] MEDS: Ipratropium/Albuterol Neb 3 ML IH SCH ×4 (03:52→22:07)
[2017-07-14] MEDS: *HR* Heparin 5,000 UNIT/ML VIAL SQ SCH ×2 (05:36→17:43)
[2017-07-14 06:11] LABS: Basophils % 0.2 %; Eosinophils # 0.1 K/mcL (0.0-0.6); Eosinophils % 1.7 %; Hematocrit 28.8 % (37.5-50.1); Hemoglobin 9.2 g/dL (12.9-16.9); Immature Granulocytes % 0.9 % (0-4); Lymphocytes # 0.9 K/mcL (0.6-4.6); Mean Corpuscular HGB Conc 31.9 g/dL (31.6-35.5); Mean Corpuscular Hemoglobin 31.5 pg (28.0-33.3); Mean Corpuscular Volume 98.6 fL (83.0-100.0); Mean Platelet Volume 10.2 fL (9.4-12.4); Monocytes # 0.3 K/mcL (0.0-1.3); Monocytes % 5.9 %; Neutrophils # 3.3 K/mcL (1.6-8.9); Platelet Count 197 K/mcL (140-400); Red Blood Count 2.92 M/mcL (4.19-5.50); Red Cell Distribution Width 14.3 % (11.5-14.5); Segmented Neutrophils % 72.3 %
[2017-07-14 06:30] LABS: BUN/Creatinine Ratio 20 (6-26); Blood Urea Nitrogen 14 mg/dL (8-23); Calcium 7.6 mg/dL (8.6-10.3); Carbon Dioxide 22 mEq/L (23-29); Chloride 109 mEq/L (98-107); Glucose 104 mg/dL (70-105); Osmolality,Calculated 289 (280-300); Potassium 3.4 mEq/L (3.5-5.1); Sodium 139 mEq/L (136-145); eGFR For African Americans > 60 (> 60); eGFR For Non-African Americans > 60 (> 60)
[2017-07-14 06:45] LABS: Platelet Estimate Normal (Normal)
[2017-07-14] MEDS: Loratadine 10 MG TABLET PO SCH (09:00)
[2017-07-14] MEDS: Aspirin 81 MG TAB.CHEW PO SCH (09:00)
[2017-07-14] MEDS: Gabapentin 100 MG CAPSULE PO SCH ×3 (09:00→19:51)
[2017-07-14] MEDS: Famotidine 20 MG TABLET PO SCH (09:01)
[2017-07-14] MEDS: Multivit/Ca/Min/Fe/FA 1 TAB TABLET PO SCH (09:01)
[2017-07-14] MEDS: Metoprolol XL (24 HR) Succ 50 MG TAB.ER.24H PO SCH (09:01)
[2017-07-14] MEDS: Cholecalciferol (D-3) 1,000 UNIT TABLET PO SCH (09:01)
[2017-07-14] MEDS: Cyanocobalamin (B-12) 1,000 MCG TABLET PO SCH (09:01)
--- NOTE | 2017-07-14 15:35 | Internal Med Progress Note ---
Date of Encounter: 07/14/17 Time of Encounter: 12:20 - Assessment and plan (1) Sepsis Current Visit: Yes Status: Acute Assessment and plan: Improving. Continue empirical abx IV unasyn blood cultures no growth so far Qualifiers: Sepsis type: sepsis due to unspecified organism Qualified Code(s): A41.9 - Sepsis, unspecified organism (2) Aspiration pneumonia Current Visit: Yes Status: Acute Assessment and plan: CT abdomen shows bilateral lung base atelectasis or pneumonia High risk for aspiration pneumonia Continue IV unasyn Continue supplemental O2 PRN Continue to monitor closely Will ask RT for chest PT Speech evaluated the pt and recommend pureed / honey thick liquids Qualifiers: Aspiration pneumonia type: unspecified Laterality: bilateral Lung location: lower lobe of lung Qualified Code(s): J69.0 - Pneumonitis due to inhalation of food and vomit (3) Diabetes Current Visit: Yes Status: Chronic Assessment and plan: Continue accuchecks and low dose SSI AC/HS. Qualifiers: Diabetes mellitus type: type 2 Diabetes mellitus manager terminal insulin use: with manager terminal use Diabetes mellitus complication status: with skin complications Diabetes mellitus complication detail: with foot ulcer Qualified Code(s): E11.621 - Type 2 diabetes mellitus with foot ulcer (4) Dementia Current Visit: Yes Status: Chronic Assessment and plan: Monitor closely. Qualifiers: Dementia type: unspecified type Dementia behavioral disturbance: without behavioral disturbance Qualified Code(s): F03.90 - Unspecified dementia without behavioral disturbance (5) CVA (cerebral vascular accident) Current Visit: Yes Status: Chronic Assessment and plan: History of CVA Resumed home meds Qualifiers: CVA mechanism: embolism Precerebral and cerebral artery: middle cerebral artery Laterality of affected vessel: right Qualified Code(s): I63.411 - Cerebral infarction due to embolism of right middle cerebral artery (6) Vomiting Current Visit: Yes Status: Resolved Assessment and plan: No further episodes. Qualifiers: Vomiting type: projectile vomiting Nausea presence: unspecified Qualified Code(s): R11.12 - Projectile vomiting (7) DVT prophylaxis Current Visit: Yes Status: Acute Assessment and plan: Continue SQ heparin. - Time Spent With Patient Total time spent is greater than 50% in coordination of care (as documented) at patient's floor/unit and/or counseling patient: - Subjective Interval history: Mr. 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 Pt was admitted here or aspiration pneumonia and started on empirical abx. No events over night. He is not communicating verbally which seems to be his baseline. - Constitutional Vitals: Temp Pulse Resp BP Pulse Ox 99.2 F 75 21 104/46 95 07/14/17 11:31 07/14/17 11:31 07/14/17 11:31 07/14/17 11:31 07/14/17 11:31 General appearance: Present: A&O X 0, no acute distress. Absent: answers questions appropriately - Head Head exam: Present: atraumatic, normal inspection - Neck Neck exam general surgery: Present: supple - Respiratory Respiratory exam: Present: decreased breath sounds, rhonchi (mild). Absent: rales, respiratory distress, wheezes - Cardiovascular Cardiovascular exam: Present: RRR, +S1, +S2. Absent: tachycardia - GI/Abdominal GI/Abdominal exam: Present: normal bowel sounds, soft. Absent: rebound, rigid, tenderness - Extremities Exam Extremities exam: Absent: calf tenderness, pedal edema, tenderness - Back Exam Back exam: Absent: CVA tenderness (L), CVA tenderness (R) - Neurological Exam Neurological exam: Present: alert - Psychiatric Psychiatric exam: Present: depressed Internal Medicine: Result - Labs CBC & Chem 7: 07/14/17 05:57 07/14/17 05:57 Labs: Short CBC 07/14/17 Range/Units 05:57 WBC 4.6 (4.3-11.1) K/mcL Hgb 9.2 L (12.9-16.9) g/dL Hct 28.8 L (37.5-50.1) % Plt Count 197 (140-400) K/mcL Neutrophils # 3.3 (1.6-8.9) K/mcL BMP 07/14/17 05:57 Sodium 139 Potassium 3.4 L Chloride 109 H Carbon Dioxide 22 L BUN 14 Creatinine 0.69 L Glucose 104 Calcium 7.6 L Consult Discharge Plan - Plan [facility]errals: [facility] [Primary Care Provider] -
[2017-07-15] MEDS: Ipratropium/Albuterol Neb 3 ML IH SCH ×4 (03:36→22:04)
[2017-07-15] MEDS: Insulin LISPRO 300 UNITS/3 ML VIAL SQ SCH ×3 (05:12→17:23)
[2017-07-15] MEDS: *HR* Heparin 5,000 UNIT/ML VIAL SQ SCH ×2 (05:12→17:24)
[2017-07-15] MEDS: Ampicillin/Sulbactam 3,000 MG in 0.9 % Sodium Chloride Mini Bag 100 ML IVPB SCH ×4 (05:13→21:39)
[2017-07-15] MEDS: Gabapentin 100 MG CAPSULE PO SCH ×3 (09:10→21:39)
[2017-07-15] MEDS: Multivit/Ca/Min/Fe/FA 1 TAB TABLET PO SCH (09:11)
[2017-07-15] MEDS: Cyanocobalamin (B-12) 1,000 MCG TABLET PO SCH (09:11)
[2017-07-15] MEDS: Aspirin 81 MG TAB.CHEW PO SCH (09:11)
[2017-07-15] MEDS: Cholecalciferol (D-3) 1,000 UNIT TABLET PO SCH (09:11)
[2017-07-15] MEDS: Famotidine 20 MG TABLET PO SCH (09:11)
[2017-07-15] MEDS: Loratadine 10 MG TABLET PO SCH (09:11)
[2017-07-15] MEDS: Metoprolol XL (24 HR) Succ 50 MG TAB.ER.24H PO SCH (09:16)
--- NOTE | 2017-07-15 14:23 | Internal Med Progress Note ---
Date of Encounter: 07/15/17 Time of Encounter: 09:00 - Assessment and plan (1) Sepsis Current Visit: Yes Status: Acute Assessment and plan: Improving. Continue empirical abx IV unasyn # 4/7 blood cultures no growth so far Qualifiers: Sepsis type: sepsis due to unspecified organism Qualified Code(s): A41.9 - Sepsis, unspecified organism (2) Aspiration pneumonia Current Visit: Yes Status: Acute Assessment and plan: CT abdomen shows bilateral lung base atelectasis or pneumonia High risk for aspiration pneumonia Continue IV unasyn Continue supplemental O2 PRN Continue to monitor closely Asked RT to do chest percussion therapy Q shift Speech evaluated the pt and recommend pureed / honey thick liquids Qualifiers: Aspiration pneumonia type: unspecified Laterality: bilateral Lung location: lower lobe of lung Qualified Code(s): J69.0 - Pneumonitis due to inhalation of food and vomit (3) Diabetes Current Visit: Yes Status: Chronic Assessment and plan: Continue accuchecks and low dose SSI AC/HS. Qualifiers: Diabetes mellitus type: type 2 Diabetes mellitus fci insulin use: with terminologist use Diabetes mellitus complication status: with skin complications Diabetes mellitus complication detail: with foot ulcer Qualified Code(s): E11.621 - Type 2 diabetes mellitus with foot ulcer (4) Dementia Current Visit: Yes Status: Chronic Assessment and plan: Monitor closely. Qualifiers: Dementia type: unspecified type Dementia behavioral disturbance: without behavioral disturbance Qualified Code(s): F03.90 - Unspecified dementia without behavioral disturbance (5) CVA (cerebral vascular accident) Current Visit: Yes Status: Chronic Assessment and plan: History of CVA Resumed home meds Qualifiers: CVA mechanism: embolism Precerebral and cerebral artery: middle cerebral artery Laterality of affected vessel: right Qualified Code(s): I63.411 - Cerebral infarction due to embolism of right middle cerebral artery (6) Vomiting Current Visit: Yes Status: Resolved Assessment and plan: No further episodes Resolved Qualifiers: Vomiting type: projectile vomiting Nausea presence: unspecified Qualified Code(s): R11.12 - Projectile vomiting (7) DVT prophylaxis Current Visit: Yes Status: Acute Assessment and plan: Continue SQ heparin. - Time Spent With Patient Total time spent is greater than 50% in coordination of care (as documented) at patient's floor/unit and/or counseling patient: - Subjective Interval history: Mr. 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 Pt was admitted here or aspiration pneumonia and started on empirical abx. No events over night. He is not communicating verbally which seems to be his baseline. He still has some coarse rhonchi and inc pulmonary secretions. - Constitutional Vitals: Temp Pulse Resp BP Pulse Ox 98.9 F 87 18 119/66 98 07/15/17 10:52 07/15/17 10:52 07/15/17 10:52 07/15/17 10:52 07/15/17 10:52 General appearance: Present: A&O X 0, no acute distress. Absent: answers questions appropriately - Head Head exam: Present: normal inspection - Neck Neck exam general surgery: Present: supple - Respiratory Respiratory exam: Present: decreased breath sounds, rhonchi, wheezes. Absent: rales, respiratory distress - Cardiovascular Cardiovascular exam: Present: RRR, +S1, +S2. Absent: systolic murmur, tachycardia - GI/Abdominal GI/Abdominal exam: Present: normal bowel sounds, soft. Absent: rebound, rigid, tenderness - Extremities Exam Extremities exam: Absent: calf tenderness, pedal edema, tenderness - Back Exam Back exam: Absent: CVA tenderness (L), CVA tenderness (R) - Neurological Exam Neurological exam: Present: altered - Psychiatric Psychiatric exam: Present: depressed - Skin Skin exam: Absent: rash Internal Medicine: Result - Labs CBC & Chem 7: 07/14/17 05:57 07/14/17 05:57 Consult Discharge Plan - Plan [facility]errals: [facility] [Primary Care Provider] -
[2017-07-16] MEDS: Insulin LISPRO 300 UNITS/3 ML VIAL SQ SCH ×2 (00:29→07:13)
[2017-07-16] MEDS: Ipratropium/Albuterol Neb 3 ML IH SCH (03:51)
[2017-07-16] MEDS: Ampicillin/Sulbactam 3,000 MG in 0.9 % Sodium Chloride Mini Bag 100 ML IVPB SCH ×2 (05:06→09:11)
[2017-07-16] MEDS: *HR* Heparin 5,000 UNIT/ML VIAL SQ SCH (05:07)
[2017-07-16 06:55] VITALS: BP 129/70
[2017-07-16] MEDS: Aspirin 81 MG TAB.CHEW PO SCH (08:40)
[2017-07-16] MEDS: Multivit/Ca/Min/Fe/FA 1 TAB TABLET PO SCH (08:40)
[2017-07-16] MEDS: Famotidine 20 MG TABLET PO SCH (08:40)
[2017-07-16] MEDS: Metoprolol XL (24 HR) Succ 50 MG TAB.ER.24H PO SCH (08:40)
[2017-07-16] MEDS: Cyanocobalamin (B-12) 1,000 MCG TABLET PO SCH (08:40)
[2017-07-16] MEDS: Loratadine 10 MG TABLET PO SCH (08:41)
[2017-07-16] MEDS: Gabapentin 100 MG CAPSULE PO SCH (08:41)
[2017-07-16] MEDS: Cholecalciferol (D-3) 1,000 UNIT TABLET PO SCH (08:41)
--- NOTE | 2017-07-16 08:44 | Discharge Summary ---
- NOTES TO OUTPATIENT PROVIDER Notes to Outpatient Provider: f/u with PCP in one week. Please give Pureed diet with honey thick liquids due to high aspiration risk Date of Encounter: 07/16/17 Time of Encounter: 08:39 - Discharge Diagnosis (1) Sepsis Priority: Primary Status: Acute Qualifiers: Sepsis type: sepsis due to unspecified organism Qualified Code(s): A41.9 - Sepsis, unspecified organism (2) Aspiration pneumonia Priority: Primary Status: Acute Qualifiers: Aspiration pneumonia type: unspecified Laterality: bilateral Lung location: lower lobe of lung Qualified Code(s): J69.0 - Pneumonitis due to inhalation of food and vomit (3) Diabetes Priority: Secondary Status: Chronic Qualifiers: Diabetes mellitus type: type 2 Diabetes mellitus jail insulin use: with jail use Diabetes mellitus complication status: with skin complications Diabetes mellitus complication detail: with foot ulcer Qualified Code(s): E11.621 - Type 2 diabetes mellitus with foot ulcer (4) Dementia Priority: Secondary Status: Chronic Qualifiers: Dementia type: unspecified type Dementia behavioral disturbance: without behavioral disturbance Qualified Code(s): F03.90 - Unspecified dementia without behavioral disturbance (5) CVA (cerebral vascular accident) Priority: Secondary Status: Chronic Qualifiers: CVA mechanism: embolism Precerebral and cerebral artery: middle cerebral artery Laterality of affected vessel: right Qualified Code(s): I63.411 - Cerebral infarction due to embolism of right middle cerebral artery (6) Vomiting Priority: Secondary Status: Resolved Qualifiers: Vomiting type: projectile vomiting Nausea presence: unspecified Qualified Code(s): R11.12 - Projectile vomiting (7) DVT prophylaxis Priority: Secondary Status: Acute Hospital course: Mr. Hartman is a 89 year old male nonverbal probably due to previous CVA, dementia , DM2, GERD, HTN, HLD, and s/p Rt AKA who is a [facility] was brought into ER on 07/12/17 with vomiting and high risk for aspiration. Pt was admitted here for aspiration pneumonia and started on empirical abx with unasyn. He is high risk for aspiration , speech did evaluated him and recommend pureed diet wiht honey thick liquids. Pt also recieved duoneb treatments and chest percussion therapy by RT. His symptoms started improving slowly, now he seems to be at his baseline. Talked to pt's son over the ph and explained to him about current care. Will d/c him back to ECF today with PO Augmentin for 3 more days. - Time Spent with Patient Total time spent providing and/or coordinating discharge services: - Discharge Medications Prescriptions: Amoxicillin/Clavulanate [Augmentin] 500 mg PO BIDWM #6 tablet Home Medications: Aspirin 81 mg PO DAILY 10/30/14 [History] Clopidogrel [Plavix] 75 mg PO DAILY 10/30/14 [History] Cyanocobalamin (Vitamin B-12) [Vitamin B-12] 500 mcg PO BID 10/30/14 [History] Docusate [Colace] 100 mg PO DAILY 10/30/14 [History] Gabapentin [Neurontin] 200 mg PO TID 10/30/14 [History] Insulin LISPRO [Humalog] 10 unit SQ TIDWM 10/30/14 [History] Lisinopril [Zestril] 5 mg PO DAILY 10/30/14 [History] Ranitidine HCl [Zantac] 150 mg PO BID 10/30/14 [History] metFORMIN [Glucophage] 500 mg PO BID 10/30/14 [History] Cholecalciferol (D-3) [Vitamin D] 1,000 unit PO DAILY 08/09/15 [History] Insulin Glargine,Hum.rec.anlog [Lantus Solostar] 17 unit SQ HS 08/09/15 [History ] Metoprolol XL (24 HR) Succ [Toprol Xl] 50 mg PO DAILY 08/09/15 [History] Acetaminophen [Pain Reliever] 500 mg PO Q8H PRN 03/17/16 [History] Ipratropium/Albuterol Neb [Duoneb] 3 ml IH Q6HR 03/17/16 [History] Multivit with Iron-Minerals [[facility] [employer] [facility]] 1 each PO DAILY 03/17/16 [History] Loratadine [Allergy Relief] 10 mg PO DAILY 07/12/17 [History] Amoxicillin/Clavulanate [Augmentin] 500 mg PO BIDWM #6 tablet 07/16/17 [Rx] Allergies/Adverse Reactions: 3 Allergy/AdvReac Type Severity Reaction Status Date / Time No Known Allergies Allergy Verified 10/16/14 09:48 Date of admission: 07/12/17 03:51 [facility] care physician: [facility] Consults: 07/12/17 05:27 Consult to Nutrition [CONS] Routine Comment: at SNF was on pureed, honey thick diet Consulting Provider: NUTRITION Reason for Dietary Consult: MST Score Consult to Production Quality Analyst [CONS] Routine Reason for SW Consult: Lives in SNF - Constitutional Vitals: Temp Pulse Resp BP Pulse Ox 98.6 F 70 16 129/70 99 07/16/17 06:53 07/16/17 06:53 07/16/17 06:53 07/16/17 06:53 07/16/17 06:53 General appearance: Present: A&O X 0, no acute distress. Absent: answers questions appropriately - Head Head exam: Present: normal inspection - Neck Neck exam general surgery: Present: supple - Respiratory Respiratory exam: Present: decreased breath sounds, wheezes (mild). Absent: rales, respiratory distress, rhonchi - Cardiovascular Cardiovascular exam: Present: RRR, +S1, +S2. Absent: tachycardia - GI/Abdominal GI/Abdominal exam: Present: normal bowel sounds, soft. Absent: rebound, rigid, tenderness - Extremities Exam Extremities exam: Absent: calf tenderness, pedal edema, tenderness - Back Exam Back exam: Absent: CVA tenderness (L), CVA tenderness (R) - Neurological Exam Neurological exam: Present: alert - Psychiatric Additional comments: Demented - Patient Status Disposition: Transfer SNF Condition: Fair Overall status at discharge: patient is back to baseline - Discharge Instructions Follow [facility] With: [facility] [Primary Care Provider[facility] - - Diet and Activity Activity: increase activity as tolerated Diet: other (Pureed diet with honey thick liquids)
--- NOTE | 2017-07-16 08:46 | Physician Discharge Referral ---
ExtendedCare Referral Info Transfer To: ECF Provider in Charge after Transfer: PCP Institutional Level of Care: Skilled - Diagnosis (1) Sepsis Status: Acute (2) Aspiration pneumonia Status: Acute (3) Diabetes Status: Chronic (4) Dementia Status: Chronic (5) CVA (cerebral vascular accident) Status: Chronic (6) Vomiting Status: Resolved (7) DVT prophylaxis Status: Acute - Transfer Medications Prescriptions: Amoxicillin/Clavulanate [Augmentin] 500 mg PO BIDWM #6 tablet Home Medications: Aspirin 81 mg PO DAILY 10/30/14 [History] Clopidogrel [Plavix] 75 mg PO DAILY 10/30/14 [History] Cyanocobalamin (Vitamin B-12) [Vitamin B-12] 500 mcg PO BID 10/30/14 [History] Docusate [Colace] 100 mg PO DAILY 10/30/14 [History] Gabapentin [Neurontin] 200 mg PO TID 10/30/14 [History] Insulin LISPRO [Humalog] 10 unit SQ TIDWM 10/30/14 [History] Lisinopril [Zestril] 5 mg PO DAILY 10/30/14 [History] Ranitidine HCl [Zantac] 150 mg PO BID 10/30/14 [History] metFORMIN [Glucophage] 500 mg PO BID 10/30/14 [History] Cholecalciferol (D-3) [Vitamin D] 1,000 unit PO DAILY 08/09/15 [History] Insulin Glargine,Hum.rec.anlog [Lantus Solostar] 17 unit SQ HS 08/09/15 [History ] Metoprolol XL (24 HR) Succ [Toprol Xl] 50 mg PO DAILY 08/09/15 [History] Acetaminophen [Pain Reliever] 500 mg PO Q8H PRN 03/17/16 [History] Ipratropium/Albuterol Neb [Duoneb] 3 ml IH Q6HR 03/17/16 [History] Multivit with Iron-Minerals [[facility] [employer] [facility]] 1 each PO DAILY 03/17/16 [History] Loratadine [Allergy Relief] 10 mg PO DAILY 07/12/17 [History] Amoxicillin/Clavulanate [Augmentin] 500 mg PO BIDWM #6 tablet 07/16/17 [Rx] Allergies/Adverse Reactions: 3 Allergy/AdvReac Type Severity Reaction Status Date / Time No Known Allergies Allergy Verified 10/16/14 09:48 - Respiratory Orders Smoking Cessation: Smoking cessation has been advised. For more information, call the [place] Tobacco Quit Line at 4-024-VJDJ-NOW. CERTIFICATION: I certify that the transfer of the above named patient to an Extended Care Facility is necessary for the continuing treatment of the diagnosis listed. The above information is true and accurate reflection of patient's current condition. Confidential - Redisclosure prohibited without a patient's written consent.
== END 2017-07-16 10:37 | DRG 871 ==
LOC: EMEROO 23:30 → 2ANU 07-12 03:51 → SUATTDRO 07-12 03:51 → 2ANU 07-12 04:45
PROVIDERS: ADMIT Internal Medicine; ATTEND Family Medicine